=== PATIENT | male | born 1945 | race Caucasian/White ===

== ENCOUNTER 2016-08-20 10:28 | Inpatient (IN) ==
--- NOTE | 2016-08-20 10:38 | Emergency Department Note ---
Disposition Clinical Impression: Neutropenic fever ALL (acute lymphoblastic leukemia) Qualifiers: Leukemia Active/Remission status: relapsed Qualified Code(s): C91.02 - Acute lymphoblastic leukemia, in relapse Disposition: Admitted As Inpatient Condition: Fair Referrals: Osiel Cabezas MD [Primary Care Provider] - Forms: ED Satisfaction Letter Time of Disposition: 11:55 General Adult HPI - General Chief complaint: ED Extremity Problem,Nontraumatic Stated complaint: leg pain Time Seen by Provider: 08/20/16 10:34 Source: EMS Limitations: no limitations Nursing Notes Reviewed: Yes Vital Signs Reviewed: Yes - History of Present Illness HPI Narrative: 71-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 Patient was seen at the cancer center yesterday had transfusions. The patient is attempting to make it through the end of August according to notes. The patient is not undergoing active therapy. The patient participated and a couple cycles of experimental therapy at [facility] and was withdrawn from the study. He should was found today to be tachycardic blood pressure in the high 80s. Concern for sepsis. Pain Scale: 3 - Related Data Home Medications Medication Instructions Recorded Confirmed Fluticasone Propionate Nasal 100 mcg NS DAILY 09/13/15 08/19/16 [Flonase] Acyclovir [Zovirax] 800 mg PO BID 01/03/16 08/19/16 Gabapentin [Neurontin] 300 mg PO BID 01/03/16 08/19/16 LORazepam [Ativan] 1 mg PO HS 01/03/16 08/19/16 Oxycodone HCl [Oxaydo] 10 mg PO HS 01/03/16 08/19/16 Sulfamethoxazole/Trimeth SS 1 each PO 2XW 01/03/16 08/19/16 [Bactrim] Tamsulosin [Flomax] 0.4 mg PO DAILY 01/03/16 08/19/16 Prochlorperazine Maleate 10 mg PO Q8HR PRN 01/04/16 08/19/16 [Compazine] Fluconazole [Diflucan] 50 mg PO DAILY 06/04/16 08/19/16 Cetirizine HCl [Zyrtec] 10 mg PO DAILY 08/19/16 08/19/16 Previous Rx's Medication Instructions Recorded Cyanocobalamin (Vitamin B-12) 1,000 mcg PO DAILY #30 tablet 07/23/16 [Vitamin B12] Folic Acid 1 mg PO DAILY #30 tablet 07/23/16 Morphine Sulfate SR (12 HR) [MS 15 mg PO Q12HR #28 tablet.er 08/19/16 Contin] Oxycodone HCl 15 mg PO Q4H PRN #48 tablet 08/19/16 Allergies Allergy/AdvReac Type Severity Reaction Status Date / Time Benzodiazepines AdvReac Difficulty Verified 08/20/16 10:35 Breathing codeine AdvReac Difficulty Verified 08/20/16 10:35 Breathing diazepam AdvReac Difficulty Verified 08/20/16 10:35 Breathing Past Medical History - Past Medical History Medical history: Reports: non-contributory, cancer, DVT Surgical history: Reports: orthopedic, other Psychiatric history: Reports: no psych history - Social History Smoking Status: Never smoker Smokeless Tobacco Status: No Alcohol use: Reports: none Drug use: Reports: none Physical Exam - General Limitations: no limitations General appearance: alert, in no apparent distress Course - Consultations Consultation #1: Discussed with oncology Rubina Castro, will start cefepime and admit Time: 11:20 Consultation #2: Discussed with Dr. Riley, admit. Time: 12:08 Vital Signs Temperature 99.0 F 08/20/16 10:29 Pulse Rate 119 08/20/16 10:29 Respiratory Rate 16 08/20/16 10:29 Blood Pressure 89/66 08/20/16 10:29 O2 Sat by Pulse Oximetry 97 08/20/16 10:29 Temperature 99.0 F 08/20/16 10:29 Pulse Rate 114 08/20/16 11:38 Respiratory Rate 16 08/20/16 11:38 Blood Pressure 105/73 08/20/16 11:38 O2 Sat by Pulse Oximetry 96 08/20/16 11:38 Oxygen Delivery Oxygen Delivery Room Air Medical Decision Making - Lab Data Lab results reviewed: Yes I reviewed the patient's lab results. Result diagrams: 08/20/16 11:03 08/20/16 11:03 Lab Results 08/20/16 08/20/16 08/20/16 Range/Units 11:03 11:03 11:03 WBC 0.2 L* (4.3-11.1) K/mcL RBC 3.31 L (4.19-5.50) M/mcL Hgb 9.4 L (12.9-16.9) g/dL Hct 27.3 L (37.5-50.1) % MCV 82.5 L (83.0-100.0) fL MCH 28.4 (28.0-33.3) pg MCHC 34.4 (31.6-35.5) g/dL RDW 15.7 H (11.5-14.5) % Plt Count 25 L* D (140-400) K/mcL MPV 9.3 L (9.4-12.4) fL Immature Gran % 0.0 (0-4) % Seg Neutrophils % 0.0 % Lymphocytes % 95.5 % Monocytes % 4.5 % Eosinophils % 0.0 % Basophils % 0.0 % Lymphocytes # 0.2 L (0.6-4.6) K/mcL Monocytes # 0.0 (0.0-1.3) K/mcL Eosinophils # 0.0 (0.0-0.6) K/mcL Basophils # 0.0 (0.0-0.2) K/mcL Platelet Estimate Marked Decrease L (Normal) Anisocytosis 1+ A (Not Present) PT 13.7 H (9.4-12.1) Seconds INR 1.3 APTT 28.4 (26.0-36.0) Seconds Sodium 130 L (136-145) mEq/L Potassium 4.5 (3.5-4.5) mEq/L Chloride 98 (98-109) mEq/L Carbon Dioxide 22 (19-29) mEq/L BUN 20 (8-26) mg/dL Creatinine 1.04 (0.72-1.25) mg/dL Est GFR ( Amer) > 60 (> 60) Est GFR (Non-Af Amer) > 60 (> 60) BUN/Creatinine Ratio 19 (6-26) Glucose 103 H (70-99) mg/dL Calculated Osmolality 273 L (280-300) Lactic Acid (0.5-2.2) mmol/L Calcium 9.0 (8.6-10.8) mg/dL Phosphorus 3.6 (2.3-4.7) mg/dL Magnesium 1.6 (1.6-2.6) mg/dL Total Bilirubin 1.0 (0.2-1.2) mg/dL Direct Bilirubin 0.5 (0.0-0.5) mg/dL Indirect Bilirubin 0.5 (0.0-1.2) mg/dL AST 26 (5-34) Units/L ALT 41 (0-55) Units/L Alkaline Phosphatase 129 H (38-126) Units/L Troponin I (0-0.03) ng/mL Serum Total Protein 6.5 (6.0-8.3) g/dL Albumin 2.8 L (3.5-5.0) g/dL Globulin 3.7 H (2.4-3.5) g/dL Albumin/Globulin Ratio 0.8 L (1.1-2.2) 08/20/16 08/20/16 Range/Units 11:03 11:03 WBC (4.3-11.1) K/mcL RBC (4.19-5.50) M/mcL Hgb (12.9-16.9) g/dL Hct (37.5-50.1) % MCV (83.0-100.0) fL MCH (28.0-33.3) pg MCHC (31.6-35.5) g/dL RDW (11.5-14.5) % Plt Count (140-400) K/mcL MPV (9.4-12.4) fL Immature Gran % (0-4) % Seg Neutrophils % % Lymphocytes % % Monocytes % % Eosinophils % % Basophils % % Lymphocytes # (0.6-4.6) K/mcL Monocytes # (0.0-1.3) K/mcL Eosinophils # (0.0-0.6) K/mcL Basophils # (0.0-0.2) K/mcL Platelet Estimate (Normal) Anisocytosis (Not Present) PT (9.4-12.1) Seconds INR APTT (26.0-36.0) Seconds Sodium (136-145) mEq/L Potassium (3.5-4.5) mEq/L Chloride (98-109) mEq/L Carbon Dioxide (19-29) mEq/L BUN (8-26) mg/dL Creatinine (0.72-1.25) mg/dL Est GFR ( Amer) (> 60) Est GFR (Non-Af Amer) (> 60) BUN/Creatinine Ratio (6-26) Glucose (70-99) mg/dL Calculated Osmolality (280-300) Lactic Acid 1.3 (0.5-2.2) mmol/L Calcium (8.6-10.8) mg/dL Phosphorus (2.3-4.7) mg/dL Magnesium (1.6-2.6) mg/dL Total Bilirubin (0.2-1.2) mg/dL Direct Bilirubin (0.0-0.5) mg/dL Indirect Bilirubin (0.0-1.2) mg/dL AST (5-34) Units/L ALT (0-55) Units/L Alkaline Phosphatase (38-126) Units/L Troponin I 0.01 (0-0.03) ng/mL Serum Total Protein (6.0-8.3) g/dL Albumin (3.5-5.0) g/dL Globulin (2.4-3.5) g/dL Albumin/Globulin Ratio (1.1-2.2) - Radiology Data Radiology results reviewed: Yes I reviewed the patient's radiology results. Chest X-Ray 08/20/16 10:35 IMPRESSION: No evidence for acute cardiopulmonary process. D/ / 08/20/2016 11:20:12 Arpan Lynn MD / Nanda Jimenez Interpreting Provider: Arpan Lynn MD
[2016-08-20] MEDS: 0.9 % Sodium Chloride 1,000 ML IVC SCH ×4 (11:09→17:40)
[2016-08-20 11:14] LABS: Hemoglobin 9.4 g/dL (12.9-16.9)
[2016-08-20 11:15] LABS: Hematocrit 27.3 % (37.5-50.1); Lymphocytes # 0.2 K/mcL (0.6-4.6); Lymphocytes % 95.5 %; Mean Corpuscular HGB Conc 34.4 g/dL (31.6-35.5); Mean Corpuscular Hemoglobin 28.4 pg (28.0-33.3); Mean Corpuscular Volume 82.5 fL (83.0-100.0); Mean Platelet Volume 9.3 fL (9.4-12.4); Monocytes % 4.5 %; Red Blood Count 3.31 M/mcL (4.19-5.50); Red Cell Distribution Width 15.7 % (11.5-14.5)
[2016-08-20 11:20] LABS: INR 1.3; Prothrombin Time 13.7 Seconds (9.4-12.1)
[2016-08-20 11:22] LABS: Activated Partial Thrombo Time 28.4 Seconds (26.0-36.0)
[2016-08-20 11:25] LABS: Platelet Count 25 K/mcL (140-400)
[2016-08-20 11:28] LABS: Alanine Aminotransferase 41 Units/L (0-55); Albumin 2.8 g/dL (3.5-5.0); Albumin/Globulin Ratio 0.8 (1.1-2.2); Alkaline Phosphatase 129 Units/L (38-126); Aspartate Amino Transferase 26 Units/L (5-34); BUN/Creatinine Ratio 19 (6-26); Bilirubin,Direct 0.5 mg/dL (0.0-0.5); Bilirubin,Indirect 0.5 mg/dL (0.0-1.2); Blood Urea Nitrogen 20 mg/dL (8-26); Carbon Dioxide 22 mEq/L (19-29); Chloride 98 mEq/L (98-109); Globulin 3.7 g/dL (2.4-3.5); Glucose 103 mg/dL (70-99); Magnesium 1.6 mg/dL (1.6-2.6); Osmolality,Calculated 273 (280-300); Phosphorous 3.6 mg/dL (2.3-4.7); Potassium 4.5 mEq/L (3.5-4.5); Sodium 130 mEq/L (136-145); Total Protein 6.5 g/dL (6.0-8.3); eGFR For African Americans > 60 (> 60); eGFR For Non-African Americans > 60 (> 60)
[2016-08-20] MEDS ORDERED: Cefepime HCl 2,000 MG in D5% in Water (Mini-Bag+) 100 ML IVPB STA (11:34)
[2016-08-20 11:39] LABS: Platelet Estimate Marked Decrease (Normal)
[2016-08-20 11:40] LABS: Anisocytosis 1+ (Not Present)
[2016-08-20] MEDS ORDERED: *HR* Morphine 2 MG/ML SYRINGE IVP ONE (12:55)
[2016-08-20] MEDS ORDERED: Ondansetron 4 MG/2 ML VIAL IVP ONE (12:56)
--- NOTE | 2016-08-20 14:22 | Internal Med History&Physical ---
Date of Encounter: 08/20/16 Time of Encounter: 14:16 Assessment and Plan (1) DVT prophylaxis Current visit: Yes Status: Acute SCDs. No heparin or Lovenox due to thrombocytopenia. (2) Cancer related pain Current visit: No Status: Acute IV fentanyl for pain. (3) Neutropenic fever Current visit: Yes Status: Acute We will treat him with IV cefepime, IV fluids. Monitor temperature curve. Follow blood cultures. (4) Pancytopenia Current visit: No Status: Acute I have reviewed the outpatient oncology notes from today, the recommendation is to transfuse PRBC for hemoglobin below 8 and transfuse platelets for platelet count below 20,000. I will follow these guidelines. (5) ALL (acute lymphoblastic leukemia) Current visit: Yes Status: Chronic Consults oncology for further palliative management and discussions on goals of care. He has been on palliative care and per his primary oncologist there is no chemotherapy they can offer. Qualifiers: Leukemia Active/Remission status: relapsed Qualified Code(s): C91.02 - Acute lymphoblastic leukemia, in relapse (6) Goals of care, counseling/discussion Current visit: Yes Status: Acute He understands that his disease is incurable and he does not have much time left to live but he would like to do anything to stay alive and treat any reversible conditions including sepsis infections and anemia. He states that he wants no CPR, no intubation and mechanical ventilation and no ICU care. He will order DNR CCA DNI code. I do not see a role for palliative care service at this time. I will consult marbleizer. The patient is very firm and he is not ready for hospice at this time. Internal Medicine - H&P: HPI Chief complaint: bilateral leg pain Admitted From: Emergency Dept Plans for Post Hospital Care: Hospice - Home History of present illness: Mr. Arce is a 71 year old male with past medical history of acute lymphoblastic leukemia diagnosed in May 2015, status post chemotherapy at [facility] and relapse at the end of 2015, on experimental chemotherapy in April 2016 which failed, started on palliative care by the oncologist at the [facility] in June 2016 was sent from his local oncologist office for bilateral leg pain. The patient states that he has been having severe bilateral thigh and hip pain which he describes as jabbing and sharp worsened when he tries to stay down. The pain started yesterday evening. He reports no associated leg weakness or numbness with the pain. He was seen by his oncologist today and he was found to be tachycardic and hypotensive and have a low-grade fever of 99.6. He was referred for evaluation in the hospital for further care. Review of systems: He feels generally weak. He denies fevers and chills. Denies nausea vomiting diarrhea. He has had a history of a DVT a long time ago but no recent blood clots, no reported bleeding including epistaxis, bleeding hematuria or rectal bleeding. Denies chest pain cough shortness of breath and sputum. The remainder of a 10 point review of systems was negative. Past medical history: History of multiple myeloma diagnosed in 2001 treated with bone marrow biopsy and in remission and history of low as above. Past surgical history no surgeries recently except for tunneled catheter and stay insertion 2 years ago. Family history was reviewed and found to be noncontributory to the patient's presentation today. Past Med Surg Social Fam HX - Past Medical History Medical history: non-contributory, cancer, DVT Psychiatric history: no psych history - Past Surgical History Surgical History: orthopedic, other - Social History Smoking Status: Never smoker Smokeless Tobacco Status: No Alcohol use: none Drug use: none Internal Medicine - H&P: Meds Fluticasone Propionate Nasal [Flonase] 100 mcg NS DAILY 09/13/15 [History] Acyclovir [Zovirax] 800 mg PO BID 01/03/16 [History] Gabapentin [Neurontin] 300 mg PO BID 01/03/16 [History] LORazepam [Ativan] 1 mg PO HS 01/03/16 [History] Oxycodone HCl [Oxaydo] 10 mg PO HS 01/03/16 [History] Sulfamethoxazole/Trimeth SS [Bactrim] 1 each PO 2XW 01/03/16 [History] Tamsulosin [Flomax] 0.4 mg PO DAILY 01/03/16 [History] Prochlorperazine Maleate [Compazine] 10 mg PO Q8HR PRN 01/04/16 [History] Fluconazole [Diflucan] 50 mg PO AD 06/04/16 [History] Cyanocobalamin (Vitamin B-12) [Vitamin B12] 1,000 mcg PO DAILY #30 tablet [Rx] Folic Acid 1 mg PO DAILY #30 tablet 07/23/16 [Rx] Cetirizine HCl [Zyrtec] 10 mg PO DAILY 08/19/16 [History] Morphine Sulfate SR (12 HR) [MS Contin] 15 mg PO Q12HR #28 tablet.er 08/19/16 [ Rx] Oxycodone HCl 15 mg PO Q4H PRN #48 tablet 08/19/16 [Rx] Allergies Benzodiazepines Adverse Reaction (Verified 08/20/16 12:29) Difficulty Breathing codeine Adverse Reaction (Verified 08/20/16 12:29) Difficulty Breathing diazepam Adverse Reaction (Verified 08/20/16 12:29) Difficulty Breathing All Systems PM: A 10-system review of systems was performed and is negative for pertinent findings except as documented above in the HPI. - Constitutional Vitals: Temp Pulse Resp BP Pulse Ox 99.0 F 118 16 117/76 99 08/20/16 10:29 08/20/16 13:17 08/20/16 13:17 08/20/16 13:17 08/20/16 13:17 - Eye Eye exam: Present: PERRL, conjuntiva pink, sclera anicteric Pupils: Present: PERRL - Respiratory Respiratory exam: Present: CTAB. Absent: accessory muscle use, rales, rhonchi, wheezes - Cardiovascular Cardiovascular exam: Present: RRR, +S1, +S2. Absent: diastolic murmur, gallop, rubs, systolic murmur - GI/Abdominal GI/Abdominal exam: Present: normal bowel sounds, soft, no peritoneal signs. Absent: distended, tenderness - Extremities Exam Extremities exam: Present: warm, radial pulses palpable and symetrical. Absent : calf tenderness, cyanotic, pedal edema - Neurological Exam Neurological exam: Present: CN II-XII intact, oriented X3, no focal deficits. Absent: pronater drift, facial droop, speech deficit - Psychiatric Additional comments: Anxious, crying at times went out and about his condition. - Skin Skin exam: Present: dry, intact Additional comments: Right-sided tunneled catheter with insertion site without erythema or discharge , covered with clear dressing. Internal Med - H&P Results - Labs CBC & Chem 7: 08/20/16 11:03 08/20/16 11:03 - Impressions chest x-ray was personally reviewed, tunnel catheter with tip in the SVC on the right and left humerus tasha. No infiltrate, effusion or vascular congestion.
[2016-08-20] MEDS ORDERED: Naloxone 0.4 MG/ML INJ IVP PRN (14:33)
[2016-08-20] MEDS ORDERED: Acetaminophen 325 MG TABLET PO PRN (14:33)
[2016-08-20] MEDS ORDERED: Fluconazole 100 MG TABLET PO SCH (14:45)
[2016-08-20] MEDS: *HR* Morphine 2 MG/ML SYRINGE IVP PRN ×2 (15:27→20:14)
[2016-08-20] MEDS: Cefepime HCl 2,000 MG in D5% in Water (Mini-Bag+) 100 ML IVPB SCH (16:23)
[2016-08-20] MEDS: *HR* Morphine Sulfate SR (12 HR) 15 MG TABLET.ER PO SCH (18:16)
[2016-08-20 20:39] LABS: Bilirubin,Urine Negative (Negative); Blood,Urine Negative (Negative); Clarity,Urine Clear (Clear); Color,Urine Yellow (Yellow); Glucose,Urine (UA) Normal (Normal); Ketones,Urine Negative (Negative); Leukocyte Esterase,Urine Negative (Negative); Nitrite,Urine Negative (Negative); Protein,Urine Negative (Neg-Trace); Urobilinogen,Urine Normal (Normal)
[2016-08-20] MEDS: *HR* OxyCODONE Immed Rel 15 MG TABLET PO PRN (21:46)
[2016-08-20] MEDS: Gabapentin 300 MG CAPSULE PO SCH (21:46)
[2016-08-20] MEDS ORDERED: Dexamethasone 4 MG/ML VIAL IVP ONE (23:12)
[2016-08-21] MEDS: *HR* Morphine 2 MG/ML SYRINGE IVP PRN ×3 (00:14→12:44)
[2016-08-21] MEDS: Cefepime HCl 2,000 MG in D5% in Water (Mini-Bag+) 100 ML IVPB SCH ×2 (00:15→08:50)
[2016-08-21] MEDS: *HR* OxyCODONE Immed Rel 15 MG TABLET PO PRN (02:14)
[2016-08-21] MEDS: 0.9 % Sodium Chloride 1,000 ML IVC SCH ×2 (03:45→14:38)
[2016-08-21 05:08] LABS: Hematocrit 25.5 % (37.5-50.1); Hemoglobin 8.6 g/dL (12.9-16.9); Lymphocytes # 0.2 K/mcL (0.6-4.6); Mean Corpuscular HGB Conc 33.7 g/dL (31.6-35.5); Mean Corpuscular Hemoglobin 28.1 pg (28.0-33.3); Mean Corpuscular Volume 83.3 fL (83.0-100.0); Mean Platelet Volume 10.2 fL (9.4-12.4); Red Blood Count 3.06 M/mcL (4.19-5.50); Red Cell Distribution Width 15.7 % (11.5-14.5)
[2016-08-21 05:11] LABS: Platelet Count 23 K/mcL (140-400)
[2016-08-21 05:15] LABS: BUN/Creatinine Ratio 20 (6-26); Blood Urea Nitrogen 18 mg/dL (8-26); Calcium 8.7 mg/dL (8.6-10.8); Carbon Dioxide 21 mEq/L (19-29); Chloride 107 mEq/L (98-109); Glucose 162 mg/dL (70-99); Osmolality,Calculated 283 (280-300); Potassium 4.7 mEq/L (3.5-4.5); Sodium 134 mEq/L (136-145); eGFR For African Americans > 60 (> 60); eGFR For Non-African Americans > 60 (> 60)
[2016-08-21 06:18] LABS: Platelet Estimate Marked Decrease (Normal)
[2016-08-21] MEDS: Dexamethasone 4 MG/ML VIAL IVP SCH ×4 (06:27→23:52)
[2016-08-21] MEDS: *HR* Morphine Sulfate SR (12 HR) 15 MG TABLET.ER PO SCH ×3 (06:28→22:27)
[2016-08-21] MEDS: Loratadine 10 MG TABLET PO SCH (08:51)
[2016-08-21] MEDS: Gabapentin 300 MG CAPSULE PO SCH ×2 (08:51→22:26)
[2016-08-21] MEDS: Folic Acid 1 MG TABLET PO SCH (08:51)
[2016-08-21] MEDS: Pantoprazole 40 MG VIAL IVP SCH (08:51)
[2016-08-21] MEDS: Fluticasone Propionate Nasal 50 MCG/SPRAY BOTTLE NS SCH (08:52)
[2016-08-21] MEDS ORDERED: Acetaminophen 325 MG TABLET PO PRN (10:40)
--- NOTE | 2016-08-21 11:49 | Palliative - Consult Note ---
Date of Encounter: 08/21/16 Time of Encounter: 10:30 - Assessment and Plan (1) Cancer related pain Current Visit: Yes Status: Acute Assessment and plan: Reviewed patients current pain medications as home. Currently taking: - MS Contin 15 mg po every 12 hrs. scheduled - Oxycodone 15 mevg po every 4 hours PRN for BTP The patient has been started on IV Morphine 4mg every 4 hours PRN Patient reports being on same regimen for several months. He states that he recently has increased taking his PRN dose of Oxycodone at home. Goals of pain management include adjustment of his snf MS Contin with minimal requirement of Oxycodone. I will increase his MS Contin to 20 mg every 12 hrs and adjust his Oxycodone BTP to every 2 hours as needed and reevaluate his comfort level tomorrow and adjust as needed. Continue his Morphine IV for severe pain not managed by po pain meds. In addition, he is also receiving IV Decradon scheduled and reports that this has also provided pain relieve. His pain assessment is as follows: 09/02 to bilateral hips and legs, reports dull ache with stabbing pain as times, he has 2+ pulses, good ROM and stands at the bedside to void without difficulty. (2) Goals of care, counseling/discussion Current Visit: Yes Status: Acute Assessment and plan: Patient reports having drafted advanced directives and Da Mendez reports that they are complete. I have requested a copy. The patients goals are to return home with HH. He is very clear that he is not ready for Hospice services yet. His code status is DNRCC-A, DNI and he desires to receive only medical therapies to keep him medically stable to enhance his quality of life. At baseline, he was driving and going out to eat with his family. He reports having a decent appetite. He understands that all therapies are palliative in nature and that he has a strong family support from his son and daughter. Son Andrea - #[phone] Daughter - [phone] We will continue to follow his progress. Thank you for the consult. (3) Constipation Current Visit: No Status: Acute Assessment and plan: Patient reports daily BMs at home and no issues with constipation. Will add bowel regimen to POC and monitor effectiveness given the changes to his pain medication. Qualifiers: Constipation type: drug induced constipation Qualified Code(s): K59.03 - Drug induced constipation (4) ALL (acute lymphoblastic leukemia) Current Visit: Yes Status: Chronic Qualifiers: Leukemia Active/Remission status: relapsed Qualified Code(s): C91.02 - Acute lymphoblastic leukemia, in relapse Palliative-CN HPI - Data of Consult Patient: new to practice Consult date: 08/21/16 Requesting Physician: Otilio Cabezas Primary Care Provider: Osiel Cabezas MD - Consult Narrative Reason for consult: Symptom Management History of present illness: Mr. Arce is a 71 year old male past medical history of acute lymphoblastic leukemia diagnosed in 2016. He is status post chemotherapy at [facility] and relapsed at the end of 2016. He has failed experimental chemotherapy and now desires medical therapies for comfort only. He reports no wanting hospice services yet. Oncology consulted palliative care for assistance with symptom management. Upon this consult, the patient is alert and agrees to talk. His son Andrea is at his bedside. The patient reports that at baseline he drives a car and ambulates without difficulty. He reports that he began having bilateral hip and upper thigh pain yesterday and visited the Oncology center where he was found to have a low-grade temp 99. 6, tachycardia, and hypotensive. He was sent to the hospital ER and admitted for further care. CC: Ila Durán Past Med Surg Social Fam HX - Past Medical History Source: patient, obtained from family Medical history: non-contributory, cancer, DVT Psychiatric history: no psych history - Past Surgical History Surgical History: orthopedic, other - Social History Smoking Status: Never smoker Smokeless Tobacco Status: No Alcohol use: none Drug use: none Medications and Allergies Fluticasone Propionate Nasal [Flonase] 100 mcg NS DAILY 09/13/15 [History] Acyclovir [Zovirax] 800 mg PO BID 01/03/16 [History] Gabapentin [Neurontin] 300 mg PO BID 01/03/16 [History] LORazepam [Ativan] 1 mg PO HS 01/03/16 [History] Oxycodone HCl [Oxaydo] 10 mg PO HS 01/03/16 [History] Sulfamethoxazole/Trimeth SS [Bactrim] 1 each PO 2XW 01/03/16 [History] Tamsulosin [Flomax] 0.4 mg PO DAILY 01/03/16 [History] Prochlorperazine Maleate [Compazine] 10 mg PO Q8HR PRN 01/04/16 [History] Fluconazole [Diflucan] 50 mg PO AD 06/04/16 [History] Cyanocobalamin (Vitamin B-12) [Vitamin B12] 1,000 mcg PO DAILY #30 tablet [Rx] Folic Acid 1 mg PO DAILY #30 tablet 07/23/16 [Rx] Cetirizine HCl [Zyrtec] 10 mg PO DAILY 08/19/16 [History] Morphine Sulfate SR (12 HR) [MS Contin] 15 mg PO Q12HR #28 tablet.er 08/19/16 [ Rx] Oxycodone HCl 15 mg PO Q4H PRN #48 tablet 08/19/16 [Rx] Allergies No Known Allergies Allergy (Verified 08/21/16 02:19) All systems: reviewed and no additional remarkable complaints except as stated ( complaints of bilateral hip and upper thigh pain) - Constitutional Constitutional ROS PAL: fatigue - EENT Eyes: requires corrective lenses - Respiratory Respiratory: as per HPI - Musculoskeletal Musculoskeletal ROS IM: arthralgias (bilalateral hip pain), muscle weakness Palliative Care-Exam - Constitutional Vitals: Temp Pulse Resp BP Pulse Ox 97.5 F L 82 18 101/67 95 08/21/16 11:27 08/21/16 11:27 08/21/16 11:27 08/21/16 11:27 08/21/16 11:27 General appearance: Present: no acute distress Exam: Patient is very organized and desires to know exact schedule of medications and POC. - Head Head Exam: Present: atraumatic, normal inspection, normocephalic - Eye Eye exam: Present: PERRL Pupils: Present: PERRL - ENT ENT exam: Present: mucous membranes dry - Neck Neck exam: Present: full ROM - Respiratory Respiratory exam: Present: CTAB - Cardiovascular Cardiovascular exam: Present: RRR, +S1, +S2 - Expanded Cardiovascular Exam Peripheral pulses: 1+: Femoral (L) PM, Femoral (R) PM, Posterior Tibialis (L), Posterior Tibialis (R), 2+: Carotid (L) PM, Carotid (R) PM, Radial (L), Radial ( R), Dorsalis Pedis (L) PM, Dorsalis Pedis (R) PM - GI/Abdominal Exam GI/Abdominal exam: Present: normal bowel sounds, soft - Rectal Rectal Exam: Present: deferred - exam: Present: normal inspection (voided per urinal) - Extremities Exam Extremities exam: Present: full ROM - Expanded Upper Extremities Exam Shoulder exam: Present: full ROM Upper Arm exam: Present: full ROM Forearm wrist exam: Present: full ROM - Expanded Lower Extremities Exam Upper Leg exam: Present: full ROM Lower Leg exam: Present: full ROM - Neurological Exam Neurological exam: Present: alert, CN II-XII intact, oriented X3 - Psychiatric Psychiatric exam: Present: agitated - Skin Skin exam: Present: normal color, warm Internal Medicine - CN: Reslt - Labs CBC & Chem 7: 08/21/16 04:50 08/21/16 04:50 Labs: Short CBC 08/21/16 Range/Units 04:50 WBC 0.2 L* (4.3-11.1) K/mcL Hgb 8.6 L (12.9-16.9) g/dL Hct 25.5 L (37.5-50.1) % Plt Count 23 L* (140-400) K/mcL BMP 08/21/16 04:50 Sodium 134 L Potassium 4.7 H Chloride 107 Carbon Dioxide 21 BUN 18 Creatinine 0.88 Glucose 162 H Calcium 8.7 Urine 08/20/16 Range/Units 20:30 Urine Color Yellow (Yellow) Urine Clarity Clear (Clear) Urine pH 6.0 (5.0-8.0) pH Units Ur Specific [place] 1.010 (1.010-1.025) Urine Protein Negative (Neg-Trace) mg/dL Urine Glucose (UA) Normal (Normal) mg/dL - ABG Interpretation ABG results: PT/INR, D-dimer PT 13.7 Seconds (9.4-12.1) H 08/20/16 11:03 Consult Discharge Plan - Plan Referrals: Osiel Cabezas MD [Primary Care Provider] - 08/29/16 11:30 am () Palliative Quality Palliative Quality: Screen for Code Status: Yes, Screen for Goals of Care: Yes, Screen for Pain: Yes, If Pain Regimen Started, Initiate Bowel Regimen: Yes, Screen for Nausea/Vomitting: Yes
[2016-08-21] MEDS ORDERED: *HR* Morphine Sulfate SR (12 HR) 15 MG TABLET.ER PO SCH (13:21)
[2016-08-21] MEDS ORDERED: *HR* OxyCODONE Immed Rel 15 MG TABLET PO PRN (13:21)
--- NOTE | 2016-08-21 15:17 | Internal Med Progress Note ---
Date of Encounter: 08/21/16 Time of Encounter: 14:52 - Assessment and plan (1) Cancer related pain Current Visit: Yes Status: Acute Assessment and plan: states that he feels uh better with starting decadron will continue the same, palliative has been consulted for pain management. Appreciate recommendations, will follow. (2) Neutropenic fever Current Visit: Yes Status: Acute Assessment and plan: Was noted to have low-grade fever yesterday, temperature 100.2. He denies any history of fever at home. No definitive source at this time, chest x-ray is clear, UA is clean. no other complains at this time. Was empirically started on cefepime yesterday, will change antibiotics to Zosyn for anaerobic coverage as well. We will follow culture results and monitor for fever spikes. will send viral respiratory panel as well. Currently patient has no fever. will maintain isolation. oncolgy has been consulted for neutropenia which is most likely 2/2 cancer related. (3) Goals of care, counseling/discussion Current Visit: Yes Status: Acute Assessment and plan: DNR-CCA-DNI does not wish to receive any active chemotherapy, but not ready for hospice. palliative on board. 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 currently under palliative care. Qualifiers: Leukemia Active/Remission status: relapsed Qualified Code(s): C91.02 - Acute lymphoblastic leukemia, in relapse - Time Spent With Patient 25 - 35 minutes - Subjective Interval history: Patient seen at the bedside this morning. Reports that the pain is much better after starting Decadron. He presented with bilateral hip and upper thigh pain yesterday and was unable to walk. He was also noted to have low-grade fevers yesterday evening which has since subsided. Denies any other complaints with no chest pain, shortness of breath, abdominal pain, nausea or vomiting or diarrhea. - Constitutional Vitals: Temp Pulse Resp BP Pulse Ox 97.5 F L 82 18 101/67 95 08/21/16 11:27 08/21/16 11:27 08/21/16 11:27 08/21/16 11:27 08/21/16 11:27 General appearance: Present: A&O X 3, no acute distress Exam: - Respiratory Respiratory exam: Present: CTAB. Absent: accessory muscle use, rales, rhonchi, wheezes - Cardiovascular Cardiovascular exam: Present: RRR, +S1, +S2. Absent: diastolic murmur, gallop, rubs, systolic murmur - GI/Abdominal GI/Abdominal exam: Present: normal bowel sounds, soft, no peritoneal signs. Absent: distended, tenderness - Extremities Exam Extremities exam: Present: warm, radial pulses palpable and symetrical. Absent : calf tenderness, cyanotic, pedal edema - Neurological Exam Neurological exam: Present: CN II-XII intact, oriented X3, no focal deficits. Absent: pronater drift, facial droop, speech deficit - Skin Skin exam: Present: dry, intact Additional comments: Right-sided tunneled catheter with insertion site without erythema or discharge , covered with clear dressing. Internal Medicine: Result - Labs CBC & Chem 7: 08/21/16 04:50 08/21/16 04:50 Labs: Short CBC 08/21/16 Range/Units 04:50 WBC 0.2 L* (4.3-11.1) K/mcL Hgb 8.6 L (12.9-16.9) g/dL Hct 25.5 L (37.5-50.1) % Plt Count 23 L* (140-400) K/mcL BMP 08/21/16 04:50 Sodium 134 L Potassium 4.7 H Chloride 107 Carbon Dioxide 21 BUN 18 Creatinine 0.88 Glucose 162 H Calcium 8.7 Urine 08/20/16 Range/Units 20:30 Urine Color Yellow (Yellow) Urine Clarity Clear (Clear) Urine pH 6.0 (5.0-8.0) pH Units Ur Specific [place] 1.010 (1.010-1.025) Urine Protein Negative (Neg-Trace) mg/dL Urine Glucose (UA) Normal (Normal) mg/dL - ABG Interpretation ABG results: PT/INR, D-dimer PT 13.7 Seconds (9.4-12.1) H 08/20/16 11:03 Consult Discharge Plan - Plan Referrals: Osiel Cabezas MD [Primary Care Provider] - 08/29/16 11:30 am ()
[2016-08-21] MEDS: Piperacillin/Tazobactam 3.375 GM in D5% in Water (Mini-Bag+) 100 ML IVPB SCH ×2 (15:47→23:53)
--- NOTE | 2016-08-21 16:43 | Oncology Inp Consult Note ---
<Otilio Cabezas Jr - Last Filed: 08/21/16 16:32> Date of Encounter: 08/21/16 Time of Encounter: 15:40 Assessment and Plan (1) ALL (acute lymphoblastic leukemia) Status: Chronic Assessment and plan: This is a 71 year old male patient with relapsed AML. He was at [facility] clinical trial, now out of treatment options and now transfusion dependent on leuko reduced and irradiated CMV PRBCs and platelets. He gets a CBC and type and screen on Mondays and each week. Goal is platelets> 10k and Hgb>8.0. He knows he is at the end of life, but he had a pain crisis yesterday at [facility], and he had a fever, hypotensive and tachycardic. Sent by EMS to our ER. His family is leaving for vacation tomorrow with goal of care surviving until they return or he deems decrease in quality of life. Once this occurs, he will accept hospice. Seen by Palliative Care. Code status changed, we are in agreement. Pain being well controlled by decadron and narcotics. Thank you PC team! Ok to discharge to home once medically stable. Please get CBC tomorrow morning and transfuse him inpatient (if out of parameters) with his specialized blood product before he leaves. We will see him with pre-scheduled appointment with me on 08/26/16 at [facility]. Assessed by Dr Cintron as well today and agrees with above plan. Qualifiers: Leukemia Active/Remission status: relapsed Qualified Code(s): C91.02 - Acute lymphoblastic leukemia, in relapse (2) Cancer related pain Status: Acute (3) Transfusion-dependent anemia Status: Acute (4) Septic shock Status: Acute Assessment and plan: Per hospitalist, on broad spectrum antibiotics and IV fluids. (5) Neutropenic fever Status: Acute - Data of Consult Patient: known to practice within the last 3 years Consult date: 08/21/16 Requesting Physician: Ila Durán Primary Care Provider: Osiel Cabezas MD - Consult Narrative Reason for consult: relapsed AML in pain crisis History of present illness: Mr. Arce is a 71 year old male with AML and multiple myeloma He was on clinical trial with Dr. Aliya Quevedo M.D. at the [facility] cancer [place] at the [facility] (phone [phone]). The patient was in a phase 1, open label, dose escalation, multicenter study to evaluate the tolerability, safety, pharmacokinetics, and antitumor activity of ADCT-402 in patients with relapsed or refractory B-cell lineage acute lymphoblastic leukemia. [facility] 10588: ADCT-402 (BS26-xtyw conjugate antibody) C2D1 [id number]. Tolerated cycle 1 without issues. And completed cycle 2 on 06/2007/05/2016 - Cancer Staged Bmbx:hypocellular bone marrow (~5% cellularity) with a cluster of atypical B lymphoblasts, highlighted by immunohistochemistry for TdT and pax5 immunohistochemistry, consistent with low level recurrent/persistent B lymphoblastic leukemia Because of that he was withdrawn from the trial. Palliative care was discussed Oncological history Multiple myeloma diagnosed in 2011. He reports he was treated for a time with lenalidomide and then proceeded to autologous stem cell transplant. IgA kappa multiple myeloma stage II ISS/ III DS. S/p autologous stem cell transplant (auto SCT) 04/16/2012. Had been on Revlimid maintenance till March 2015 Re-staging showed no evidence of recurrence. Pt follows with Dr Banks O/P. Transfusion requirements He will be getting weekly CBC with type and cross on Mondays. The patient had requested from [facility] that he be allowed to continue to be transfused as needed for packed red blood cells or platelets here at [place], since he lives locally. The patient requires leuko-reduced and irradiated CMV packed red blood cells as well as leuko-reduced and irradiated CMV platelets. He has a right Paul catheter, and [facility] center nurses will change dressing every Friday. 06/05/16: 2 units PRBCs and another 2 units of packed RBCs on 06/24/2016 08/19/16: Patient discussed hospice. He is not quite ready. Goal is to make it to end of August 2016. Transfusion dependent. New onset pain in hips and femurs Then on 08/20/16, returned to cancer center in septic shock from neutropenic fever. EMS was called and sent to [facility]. He was admitted for pain control and neutropenic fever. Oncology consulted. Past Med Surg Social Fam HX - Past Medical History Medical history: non-contributory, cancer, DVT Psychiatric history: no psych history - Past Surgical History Surgical History: orthopedic, other - Social History Smoking Status: Never smoker Smokeless Tobacco Status: No Alcohol use: none Drug use: none Medications and Allergies Fluticasone Propionate Nasal [Flonase] 100 mcg NS DAILY 09/13/15 [History] Acyclovir [Zovirax] 800 mg PO BID 01/03/16 [History] Gabapentin [Neurontin] 300 mg PO BID 01/03/16 [History] LORazepam [Ativan] 1 mg PO HS 01/03/16 [History] Oxycodone HCl [Oxaydo] 10 mg PO HS 01/03/16 [History] Sulfamethoxazole/Trimeth SS [Bactrim SS] 1 each PO 2XW 01/03/16 [History] Tamsulosin [Flomax] 0.4 mg PO DAILY 01/03/16 [History] Prochlorperazine Maleate [Compazine] 10 mg PO Q8HR PRN 01/04/16 [History] Fluconazole [Diflucan] 50 mg PO AD 06/04/16 [History] Cyanocobalamin (Vitamin B-12) [Vitamin B12] 1,000 mcg PO DAILY #30 tablet [Rx] Folic Acid 1 mg PO DAILY #30 tablet 07/23/16 [Rx] Cetirizine HCl [Zyrtec] 10 mg PO DAILY 08/19/16 [History] Morphine Sulfate SR (12 HR) [MS Contin] 15 mg PO Q12HR #28 tablet.er 08/19/16 [ Rx] Oxycodone HCl 15 mg PO Q4H PRN #48 tablet 08/19/16 [Rx] Cefdinir [Omnicef] 300 mg PO BID #10 capsule 08/22/16 [Rx] Dexamethasone [Decadron] 4 mg PO Q6H #16 tab 08/22/16 [Rx] Allergies No Known Allergies Allergy (Verified 08/21/16 02:19) Constitutional: Present: fatigue Musculoskeletal: Present: muscle weakness (legs) Oncology - Exam - Constitutional Vitals: Temp Pulse Resp BP Pulse Ox 97.5 F L 71 18 95/61 98 08/21/16 15:30 08/21/16 15:30 08/21/16 15:30 08/21/16 15:30 08/21/16 15:30 General appearance: average body habitus, no acute distress - Head Head exam: Present: atraumatic, normal inspection - Eye Eye exam: Present: normal appearance, PERRL - ENT ENT exam: Present: mucous membranes moist - Neck Neck exam: Present: full ROM, normal inspection - Respiratory Respiratory exam: Present: CTAB - Cardiovascular Cardiovascular exam: Present: RRR, +S1, +S2 - GI/Abdominal GI/Abdominal exam: Present: normal bowel sounds, soft - Extremities Exam Extremities exam: Present: full ROM, normal inspection - Neurological Exam Neurological exam: Present: alert, CN II-XII intact, oriented X3, no focal deficits - Psychiatric Psychiatric exam: Present: normal affect, normal mood - Skin Skin exam: Present: dry, intact, warm Oncology - Results - Labs Labs: Short CBC 08/21/16 Range/Units 04:50 WBC 0.2 L* (4.3-11.1) K/mcL Hgb 8.6 L (12.9-16.9) g/dL Hct 25.5 L (37.5-50.1) % Plt Count 23 L* (140-400) K/mcL BMP 08/21/16 04:50 Sodium 134 L Potassium 4.7 H Chloride 107 Carbon Dioxide 21 BUN 18 Creatinine 0.88 Glucose 162 H Calcium 8.7 Urine 08/20/16 Range/Units 20:30 Urine Color Yellow (Yellow) Urine Clarity Clear (Clear) Urine pH 6.0 (5.0-8.0) pH Units Ur Specific [place] 1.010 (1.010-1.025) Urine Protein Negative (Neg-Trace) mg/dL Urine Glucose (UA) Normal (Normal) mg/dL Consult Discharge Plan - Plan Instructions: Anemia (GEN) Referrals: Osiel Cabezas MD [Primary Care Provider] - 08/29/16 11:30 am () Prescriptions: Cefdinir [Omnicef] 300 mg PO BID #10 capsule Dexamethasone [Decadron] 4 mg PO Q6H #16 tab <Fernnada Cintron S - Last Filed: 08/22/16 17:29> Date of Encounter: 08/21/16 - Data of Consult Requesting Physician: Trevor Buchanan Primary Care Provider: Osiel Cabezas MD - Consult Narrative History of present illness: Mr. Arce is a 71 year old male Oncology - Exam - Constitutional Vitals: Temp Pulse Resp BP Pulse Ox 97.5 F L 80 20 145/82 99 08/22/16 11:26 08/22/16 11:26 08/22/16 11:26 08/22/16 11:26 08/22/16 11:26 Oncology - Results - Labs Labs: Short CBC 08/22/16 Range/Units 08:55 WBC 0.1 L* (4.3-11.1) K/mcL Hgb 8.4 L (12.9-16.9) g/dL Hct 24.1 L (37.5-50.1) % Plt Count 14 L* (140-400) K/mcL Neutrophils # 0.0 L (1.6-8.9) K/mcL BMP 08/22/16 08:55 Sodium 136 Potassium 4.2 Chloride 108 Carbon Dioxide 18 L BUN 29 H D Creatinine 0.92 Glucose 259 H Calcium 8.6 - Attending Attestation I examined this patient and my medical decision-making was reviewed with the Advanced Practice Nurse. I agree with the documented findings, disposition and treatment plan as described except to the extent set forth below. Admitted with possible sepsis in the setting of neutropenia. Also dehydration. Improved with IV antibiotics and hydration. Energy level considerably better. Will follow him as an outpatient. We will continue with packed RBC support and platelet transfusion is indicated. He understands overall prognosis is poor
--- NOTE | 2016-08-21 19:13 | Electrocardiograph Report ---
[place] [facility] Test Date: 2016-08-20 Pat Name: Fortino Arce Department: 104 Room: 2A22 Gender: M [employer]: : 1945 Requested By: Devang Ac Order Number: [id number] Reading MD: Sharonda Valiente DO Measurements Intervals [place] Rate: 115 P: 42 ND: 162 QRS: 37 QRSD: 84 T: 17 QT: 307 QTc: 375 Interpretive Statements SINUS TACHYCARDIA INDETERMINATE AXIS PATTERN CONSISTENT WITH PULMONARY DISEASE WARNING: DATA QUALITY MAY AFFECT INTERPRETATION Poor R wave progression Electronically Signed On 08-21-2016 19:11:48 EDT by Sharonda Valiente DO
[2016-08-22 00:20] LABS: Adenovirus Not Detected (Not Detect); Bordetella Pertussis Not Detected (Not Detect); Chlamydophila pneumoniae Not Detected (Not Detect); Coronavirus 229E Not Detected (Not Detect); Coronavirus HKU1 Not Detected (Not Detect); Coronavirus NL63 Not Detected (Not Detect); Coronavirus OC43 Not Detected (Not Detect); Human Metapneumovirus Not Detected (Not Detect); Human Rhinovirus/Enterovirus Not Detected (Not Detect); Influenza A Subtype 2009 H1 Not Detected (Not Detect); Influenza A Untypeable Not Detected (Not Detect); Influenza B Not Detected (Not Detect); Mycoplasma pneumoniae Not Detected (Not Detect); Parainfluenza Virus 1 Not Detected (Not Detect); Parainfluenza Virus 2 Not Detected (Not Detect); Parainfluenza Virus 3 Not Detected (Not Detect); Parainfluenza Virus 4 Not Detected (Not Detect); Respiratory Syncytial Virus Not Detected (Not Detect)
[2016-08-22] MEDS: Dexamethasone 4 MG/ML VIAL IVP SCH ×2 (06:54→11:25)
[2016-08-22] MEDS: *HR* Morphine Sulfate SR (12 HR) 15 MG TABLET.ER PO SCH ×2 (06:54→11:17)
[2016-08-22] MEDS: Gabapentin 300 MG CAPSULE PO SCH (08:43)
[2016-08-22] MEDS: Loratadine 10 MG TABLET PO SCH (08:44)
[2016-08-22] MEDS: Pantoprazole 40 MG VIAL IVP SCH (08:44)
[2016-08-22] MEDS: Fluticasone Propionate Nasal 50 MCG/SPRAY BOTTLE NS SCH (08:44)
[2016-08-22] MEDS: Folic Acid 1 MG TABLET PO SCH (08:44)
[2016-08-22] MEDS: Piperacillin/Tazobactam 3.375 GM in D5% in Water (Mini-Bag+) 100 ML IVPB SCH (08:46)
[2016-08-22] MEDS: 0.9 % Sodium Chloride 1,000 ML IVC SCH ×2 (08:51→08:52)
[2016-08-22] MEDS ORDERED: Sulfamethoxazole/Trimeth SS 1 TAB PO SCH (09:00)
[2016-08-22 09:08] LABS: Hemoglobin 8.4 g/dL (12.9-16.9)
[2016-08-22 09:10] LABS: Hematocrit 24.1 % (37.5-50.1); Immature Platelets 2.1 % (1.1-6.1); Lymphocytes # 0.1 K/mcL (0.6-4.6); Lymphocytes % 92.3 %; Mean Corpuscular HGB Conc 34.9 g/dL (31.6-35.5); Mean Corpuscular Hemoglobin 28.5 pg (28.0-33.3); Mean Corpuscular Volume 81.7 fL (83.0-100.0); Mean Platelet Volume 9.5 fL (9.4-12.4); Red Blood Count 2.95 M/mcL (4.19-5.50); Red Cell Distribution Width 15.4 % (11.5-14.5); Segmented Neutrophils % 7.7 %
[2016-08-22 09:13] LABS: Platelet Count 14 K/mcL (140-400)
[2016-08-22 09:19] LABS: BUN/Creatinine Ratio 32 (6-26); Calcium 8.6 mg/dL (8.6-10.8); Carbon Dioxide 18 mEq/L (19-29); Chloride 108 mEq/L (98-109); Glucose 259 mg/dL (70-99); Osmolality,Calculated 297 (280-300); Potassium 4.2 mEq/L (3.5-4.5); Sodium 136 mEq/L (136-145); eGFR For African Americans > 60 (> 60); eGFR For Non-African Americans > 60 (> 60)
[2016-08-22 09:20] LABS: Blood Urea Nitrogen 29 mg/dL (8-26)
[2016-08-22 09:51] LABS: Platelet Estimate Marked Decrease (Normal); Rouleaux Present (Not Present)
[2016-08-22 11:32] VITALS: BP 145/82
--- NOTE | 2016-08-22 11:42 | Discharge Summary ---
Date of Encounter: 08/21/16 Time of Encounter: 11:38 - Discharge Diagnosis (1) Cancer related pain Priority: Primary Status: Acute (2) Neutropenic fever Priority: Primary Status: Acute (3) Goals of care, counseling/discussion Priority: Primary Status: Acute (4) ALL (acute lymphoblastic leukemia) Priority: Secondary Status: Chronic Qualifiers: Leukemia Active/Remission status: relapsed Qualified Code(s): C91.02 - Acute lymphoblastic leukemia, in relapse - Discharge Medications Prescriptions: Cefdinir [Omnicef] 300 mg PO BID #10 capsule Dexamethasone [Decadron] 4 mg PO Q6H #16 tab Home Medications: Fluticasone Propionate Nasal [Flonase] 100 mcg NS DAILY 09/13/15 [History] Acyclovir [Zovirax] 800 mg PO BID 01/03/16 [History] Gabapentin [Neurontin] 300 mg PO BID 01/03/16 [History] LORazepam [Ativan] 1 mg PO HS 01/03/16 [History] Oxycodone HCl [Oxaydo] 10 mg PO HS 01/03/16 [History] Sulfamethoxazole/Trimeth SS [Bactrim SS] 1 each PO 2XW 01/03/16 [History] Tamsulosin [Flomax] 0.4 mg PO DAILY 01/03/16 [History] Prochlorperazine Maleate [Compazine] 10 mg PO Q8HR PRN 01/04/16 [History] Fluconazole [Diflucan] 50 mg PO AD 06/04/16 [History] Cyanocobalamin (Vitamin B-12) [Vitamin B12] 1,000 mcg PO DAILY #30 tablet [Rx] Folic Acid 1 mg PO DAILY #30 tablet 07/23/16 [Rx] Cetirizine HCl [Zyrtec] 10 mg PO DAILY 08/19/16 [History] Morphine Sulfate SR (12 HR) [MS Contin] 15 mg PO Q12HR #28 tablet.er 08/19/16 [ Rx] Oxycodone HCl 15 mg PO Q4H PRN #48 tablet 08/19/16 [Rx] Cefdinir [Omnicef] 300 mg PO BID #10 capsule 08/22/16 [Rx] Dexamethasone [Decadron] 4 mg PO Q6H #16 tab 08/22/16 [Rx] Allergies/Adverse Reactions: Allergies No Known Allergies Allergy (Verified 08/21/16 02:19) Date of admission: 08/20/16 15:23 Primary care physician: Osiel Cabezas MD Consults: 08/20/16 16:40 Consult to Nutrition [CONS] Routine Comment: Consulting Provider: NUTRITION Reason for Dietary Consult: MST Score 08/20/16 23:45 Consult to Pastoral Services [CONS] Routine Comment: end of life, grief reaction 08/21/16 08:52 Consult to Palliative Care [CONS] Routine Comment: Consulting Provider: Palliative Care [place] Discharging clinician: Trevor Buchanan Anticipated date of discharge: 08/22/16 - Patient Status Disposition: Home, Self-Care Condition: Fair Functional capacity at discharge: independent ambulation Overall status at discharge: patient is back to baseline - Discharge Instructions Instructions: Anemia (GEN) Follow Up With: Osiel Cabezas MD [Primary Care Provider] - 08/29/16 11:30 am () - Diet and Activity Activity: resume usual activities as tolerated Diet: advance to your usual diet Interval History: Mr. Arce is a 71 year old male with past medical history of acute lymphoblastic leukemia diagnosed in May 2015, status post chemotherapy at [facility] and relapse at the end of 2015, on experimental chemotherapy in April 2016 which failed, started on palliative care by the oncologist at the [facility] in June 2016 was sent from his local oncologist office for bilateral leg pain. The patient states that he has been having severe bilateral thigh and hip pain which he describes as jabbing and sharp worsened when he tries to stay down. The pain started yesterday evening. He reports no associated leg weakness or numbness with the pain. He was seen by his oncologist today and he was found to be tachycardic and hypotensive and have a low-grade fever of 99.6. He was referred for evaluation in the hospital for further care. Work up revealed pancytopenia which is chronic for him. HE is transfusion dpendent and follows up twice a week for transfusion as needed. HE was started emperically on IV Zosyn for low grade fever given neutropenia. He had no more fever spikes, blood cultures came out negative, chest x-ray and ua was clean. Respiratory viral panel was negative. He was started on Decadron which greatly relieved his pain. Oncology and palliative was consulted. repeat cbc showed significantly low platelets of 14, was given 1 unit of irradiated CMV platelets before dc. he is being dc in stable condition, will send him with oral cefdinir to complete 7 days and oral decadron. HE is to follow up with cancer center on 08/26. he is dc in stable condition. Hospital course: Mr. Arce is a 71 year old male Time spent discussing smoking cessation with patient: more than 10 minutes - Time Spent with Patient Total time spent providing and/or coordinating discharge services: Greater than 30 minutes - Constitutional Vitals: Temp Pulse Resp BP Pulse Ox 97.5 F L 80 20 145/82 99 08/22/16 11:26 08/22/16 11:26 08/22/16 11:26 08/22/16 11:26 08/22/16 11:26 General appearance: Present: A&O X 3, no acute distress Exam: Eye exam: Present: PERRL, conjuntiva pink, sclera anicteric Pupils: Present: PERRL - Respiratory Respiratory exam: Present: CTAB. Absent: accessory muscle use, rales, rhonchi, wheezes - Cardiovascular Cardiovascular exam: Present: RRR, +S1, +S2. Absent: diastolic murmur, gallop, rubs, systolic murmur - GI/Abdominal GI/Abdominal exam: Present: normal bowel sounds, soft, no peritoneal signs. Absent: distended, tenderness - Extremities Exam Extremities exam: Present: warm, radial pulses palpable and symetrical. Absent : calf tenderness, cyanotic, pedal edema - Neurological Exam Neurological exam: Present: CN II-XII intact, oriented X3, no focal deficits. Absent: pronater drift, facial droop, speech deficit - Psychiatric Additional comments: Anxious, crying at times went out and about his condition. - Skin Skin exam: Present: dry, intact Additional comments: Right-sided tunneled catheter with insertion site without erythema or discharge , covered with clear dressing.
--- NOTE | 2016-08-22 12:49 | Palliative Progress Note ---
Date of Encounter: 08/21/16 Time of Encounter: 10:30 - Assessment and plan (1) Cancer related pain Current Visit: Yes Status: Acute Assessment and plan: Ms. Arec would like to continue utilizing the oxycodone as needed for pain control upon discharge. He found great relief with the addition of the Decadron , which will continue upon discharge. He will follow up at the Cancer center. (2) Goals of care, counseling/discussion Current Visit: Yes Status: Acute Assessment and plan: Reviewed goals of care with the patient. He has an understanding of his disease process and the obstacles he will meet down the road. He has very clear personal goals and a back up plan of hospice when he is emotionally ready. (3) ALL (acute lymphoblastic leukemia) Current Visit: Yes Status: Chronic Qualifiers: Leukemia Active/Remission status: relapsed Qualified Code(s): C91.02 - Acute lymphoblastic leukemia, in relapse - Time Spent With Patient Total time spent is greater than 50% in coordination of care (as documented) at patient's floor/unit and/or counseling patient: - Subjective Interval history: Mr. Arce is sitting up in bed. He rates his pain 1/10. He has utilized only 2 doses of breakthrough medications in the past 24 hours. He has also declined to take the MS Contin. - Constitutional Vitals: Abnormal lab results WBC 0.1 K/mcL (4.3-11.1) L* 08/22/16 08:55 RBC 2.95 M/mcL (4.19-5.50) L 08/22/16 08:55 Hgb 8.4 g/dL (12.9-16.9) L 08/22/16 08:55 Hct 24.1 % (37.5-50.1) L 08/22/16 08:55 MCV 81.7 fL (83.0-100.0) L 08/22/16 08:55 RDW 15.4 % (11.5-14.5) H 08/22/16 08:55 Plt Count 14 K/mcL (140-400) L* 08/22/16 08:55 Neutrophils # 0.0 K/mcL (1.6-8.9) L 08/22/16 08:55 Lymphocytes # 0.1 K/mcL (0.6-4.6) L 08/22/16 08:55 Platelet Estimate Marked Decrease (Normal) L 08/22/16 08:55 Anisocytosis 1+ (Not Present) A 08/20/16 11:03 Rouleaux Present (Not Present) A 08/22/16 08:55 PT 13.7 Seconds (9.4-12.1) H 08/20/16 11:03 Carbon Dioxide 18 mEq/L (19-29) L 08/22/16 08:55 BUN 29 mg/dL (8-26) H D 08/22/16 08:55 BUN/Creatinine Ratio 32 (6-26) H 08/22/16 08:55 Glucose 259 mg/dL (70-99) H 08/22/16 08:55 Alkaline Phosphatase 129 Units/L (38-126) H 08/20/16 11:03 Albumin 2.8 g/dL (3.5-5.0) L 08/20/16 11:03 Globulin 3.7 g/dL (2.4-3.5) H 08/20/16 11:03 Albumin/Globulin Ratio 0.8 (1.1-2.2) L 08/20/16 11:03 General appearance: Present: cooperative, no acute distress - ENT ENT exam: Present: mucous membranes moist - Respiratory Respiratory exam: Absent: accessory muscle use, respiratory distress - GI/Abdominal GI/Abdominal exam: Absent: guarding, tenderness - Extremities Exam Extremities exam: Present: normal inspection. Absent: pedal edema - Neurological Exam Neurological exam: Present: alert, oriented X3, no focal deficits, strengths equal and symetr throughout Palliative Quality Palliative Quality: Screen for Code Status: Yes, Screen for Goals of Care: Yes, Screen for Pain: Yes, If Pain Regimen Started, Initiate Bowel Regimen: Yes, Screen for Nausea/Vomitting: Yes - Labs CBC & Chem 7: 08/22/16 08:55 08/22/16 08:55 Labs: Laboratory Results - last 24 hr 08/21/16 08/22/16 08/22/16 23:04 08:55 08:55 WBC 0.1 L* RBC 2.95 L Hgb 8.4 L Hct 24.1 L MCV 81.7 L MCH 28.5 MCHC 34.9 RDW 15.4 H Plt Count 14 L* MPV 9.5 Immature Gran % 0.0 Seg Neutrophils % 7.7 Lymphocytes % 92.3 Monocytes % 0.0 Eosinophils % 0.0 Basophils % 0.0 Neutrophils # 0.0 L Lymphocytes # 0.1 L Monocytes # 0.0 Eosinophils # 0.0 Basophils # 0.0 Platelet Estimate Marked Decrease L Immature Plt Fraction 2.1 Rouleaux Present A Sodium 136 Potassium 4.2 Chloride 108 Carbon Dioxide 18 L BUN 29 H D Creatinine 0.92 Est GFR ( Amer) > 60 Est GFR (Non-Af Amer) > 60 BUN/Creatinine Ratio 32 H Glucose 259 H Calculated Osmolality 297 Calcium 8.6 Chlamy pneumoniae PCR Not Detected Adenovirus (PCR) Not Detected B. pertussis DNA (PCR) Not Detected Coronavirus OC43 (PCR) Not Detected Coronavirus HKU1 (PCR) Not Detected Coronavirus 229E (PCR) Not Detected Coronavirus NL63 (PCR) Not Detected Human Metapneumovirus Not Detected Influenza A (H1) PCR Not Detected Influ A (H1N1/09) PCR Not Detected Influenza A (H3) PCR Not Detected Influenza A Untype (PCR) Not Detected Influenza Type B (PCR) Not Detected M.pneumoniae DNA (PCR) Not Detected Parainfluenza 1 (PCR) Not Detected Parainfluenza 2 (PCR) Not Detected Parainfluenza 3 (PCR) Not Detected Parainfluenza 4 (PCR) Not Detected RSV (PCR) Not Detected Entero/Rhino (PCR) Not Detected - ABG Interpretation ABG results: PT/INR, D-dimer PT 13.7 Seconds (9.4-12.1) H 08/20/16 11:03 Consult Discharge Plan - Plan Instructions: Anemia (GEN) Referrals: sOiel Cabezas MD [Primary Care Provider] - 08/29/16 11:30 am () Prescriptions: Cefdinir [Omnicef] 300 mg PO BID #10 capsule Dexamethasone [Decadron] 4 mg PO Q6H #16 tab
[2016-08-23] MEDS ORDERED: Fluconazole 100 MG TABLET PO SCH (09:00)
== END 2016-08-22 12:49 | disposition home or self-care (01) | DRG 871 ==
LOC: EMEROO 10:28 → 3BNU 10:28 → 2ANU 13:42 → SUATTDRO 15:23
PROVIDERS: ADMIT Nurse Practitioner Family; ATTEND Internal Medicine Endocrinology, Diabetes & Metabolism